=== PATIENT | female | born 1955 | race Caucasian/White ===

== ENCOUNTER 2023-02-20 08:27 | Day surgery (SDC) | payer MEDICARE ==
--- NOTE | 2023-02-20 07:45 | P.GSHP ---
History of Present Illness H&P Date: 02/20/23 Chief Complaint: Chronic cholecystitis 67-year-old female seen in the office in December. Patient with complaints of epigastric pain. She has been forced to eat a more bland diet. HIDA scan showed nonvisualization of the gallbladder and ultrasound shows gallstones. Past Medical History Past Medical History: Blood Disorder Additional Past Medical History / Comment(s): Cholecystitis, Factor V Leiden History of Any Multi-Drug Resistant Organisms: None Reported Additional Past Surgical History / Comment(s): L breast lump removed/noncancerous. Past Anesthesia/Blood Transfusion Reactions: No Reported Reaction Smoking Status: Former smoker - Past Family History Father Family Medical History: CVA/TIA, Myocardial Infarction (GA) Additional Family Medical History / Comment(s): GA at age 39yrs. Mother History Unknown: Yes Family Medical History: Diabetes Mellitus, Renal Disease Additional Family Medical History / Comment(s): Cholecystitis- after surgery to removed. Medications and Allergies Home Medications Medication Instructions Recorded Confirmed Type Ascorbic Acid [Vitamin C chew] 500 mg PO QAM 02/18/23 02/18/23 History Aspirin [Adult Low Dose Aspirin EC] 81 mg PO QAM 02/18/23 02/18/23 History Multivitamin [Multivitamins Adult 1 tab PO QAM 02/18/23 02/18/23 History Gummies] Pantoprazole [Protonix] 40 mg PO QAM 02/18/23 02/18/23 History Allergies Allergy/AdvReac Type Severity Reaction Status Date / Time amoxicillin Allergy Itching Verified 02/18/23 11:41 Penicillins Allergy Itching Verified 02/18/23 11:41 Surgical - Exam Physical exam: General: Well-developed, well-nourished HEENT: Normocephalic, sclerae nonicteric Abdomen: Nontender, nondistended Extremities: No edema Neuro: Alert and oriented Assessment and Plan (1) Chronic cholecystitis Narrative/Plan: 67-year-old female with chronic cholecystitis. We'll proceed with laparoscopic, possible open cholecystectomy at this time. Risks of bleeding, infection, bile leak, bile duct injury, retained common bile duct stone, trocar injury, conversion to an open procedure, hernia, anesthesia related complications were reviewed. The patient understands and wishes to proceed. Status: Acute Code(s): K81.1 - CHRONIC CHOLECYSTITIS SNOMED Code(s): 04203622
[~2023-02-20 08:27] MED LIST: ACETAMINOPHEN TAB 500 MG TAB PO PRN; DEXAMETHASONE SOD PHOSPHATE 4 MG/ML 1 ML VIAL IV ONE; HEPARIN SODIUM,PORCINE/PF 5,000 UNIT/0.5 ML SYRINGE SQ PRN; HYDROmorphone 0.5 MG/0.5 ML SYRINGE IVP PRN; LACTATED RINGERS 1,000 ML IV SCH; MIDAZOLAM 2 MG/2 ML VIAL IV PRN; ONDANSETRON 4 MG/2 ML VIAL IVP ONE
[2023-02-20 09:56] LABS: Basophils % (A) 0 %; Eosinophils # (A) 0.2 k/uL (0-0.7); Eosinophils % (A) 4 %; HCT 46.9 % (34.0-46.0); HGB 15.5 gm/dL (11.4-16.0); Lymphocytes % (A) 16 %; MCH 27.7 pg (25.0-35.0); Mean Platelet Volume 8.7; Monocytes # (A) 0.3 k/uL (0-1.0); Monocytes % (A) 4 %; Neutrophils # (A) 4.3 k/uL (1.3-7.7); Neutrophils % (A) 73 %; Platelet Count 260 k/uL (150-450); RBC 5.58 m/uL (3.80-5.40); RDW 14.1 % (11.5-15.5); WBC 5.9 k/uL (3.8-10.6)
[2023-02-20 10:08] VITALS: RESP 16
[2023-02-20] MEDS ORDERED: NEOSTIGMINE 1 MG/ML 10 ML VIAL ONE (10:29)
[2023-02-20] MEDS ORDERED: KETOROLAC 15 MG/ML 1 ML VIAL ONE (10:29)
[2023-02-20] MEDS ORDERED: PROPOFOL 10 MG/ML 20 ML VIAL IV ONE (10:29)
[2023-02-20] MEDS ORDERED: fentaNYL (PF) 50 MCG/ML 2 ML AMP ONE (10:29)
[2023-02-20] MEDS ORDERED: ROCURONIUM 10 MG/ML (5 ML VIAL) IV ONE (10:29)
[2023-02-20] MEDS ORDERED: SUCCINYLCHOLINE CHLORIDE 200 MG/10 ML VIAL IV ONE (10:29)
[2023-02-20] MEDS ORDERED: MIDAZOLAM 2 MG/2 ML VIAL ONE (10:29)
[2023-02-20] MEDS ORDERED: HYDROmorphone (PF) 1 MG/ML ONE (10:29)
[2023-02-20] MEDS ORDERED: LIDOCAINE 4% LTA KIT (4 ML) TOPICAL ONE (10:29)
[2023-02-20] MEDS ORDERED: GLYCOPYRROLATE 0.2 MG/ML 2 ML VIAL ONE (10:29)
[2023-02-20] MEDS ORDERED: LIDOCAINE 1% INJ 10MG/ML (20 ML MDV) ONE (10:29)
[2023-02-20] MEDS ORDERED: BUPIVACAINE (PF) 0.25% 30 ML VIAL SQ ONE ×2 (10:33)
[2023-02-20] MEDS ORDERED: LACTATED RINGERS 1,000 ML IV ONE (11:15)
[2023-02-20 12:14] VITALS: TEMP 97.6
--- NOTE | 2023-02-20 13:03 | P.OP ---
Date of Procedure: 02/20/23 Procedure(s) Performed: PREOPERATIVE DIAGNOSIS: Chronic cholecystitis POSTOPERATIVE DIAGNOSIS: Same PROCEDURE: Laparoscopic cholecystectomy SURGEON: Dylan EBL: Minimal see anesthesia record ANESTHESIA: Gen. COMPLICATIONS: None OPERATIVE PROCEDURE: The patient was brought and placed on the operating room table in the supine position. The patient was placed under general anesthesia at that time. The abdomen was prepped and draped in the usual sterile fashion. A small vertical infraumbilical incision was made. The fascia was grasped with the Alban forceps. The fascia was retracted anteriorly. The Veress needle was advanced into the peritoneal cavity. The saline drop test was normal. Insufflation took place up to 15 mmHg. A 5 mm optical trocar was advanced and the peritoneal cavity. 2 additional 5 mm trochars were placed in the right upper quadrant under direct visualization. A 12 mm trocar was advanced into the epigastric incision site. The gallbladder had a thickened wall. The gallbladder was retracted superiorly and laterally. The peritoneum overlying the infundibulum was bluntly dissected. The patient's cystic duct was visualized. The junction between the cystic duct common and hepatic duct was identified. The critical view of safety was achieved after blunt dissection. The cystic duct was then divided after placement of 3 12 mm clips on the patient's side and one on the specimen side. The cystic artery was identified and clipped as well. A small vessel was seen along the gallbladder fossa and clipped as well. The gallbladder was then removed from the liver bed using electrocautery. The posterior wall the gallbladder was even thicker. A few small vessels were seen and clipped. The gallbladder was then removed from the epigastric trocar site with an Endo Catch bag. The gallbladder fossa was irrigated with saline. There was no evidence of any bleeding or biliary drainage seen. The fascia at the 12 millimeter site was closed using a Bright- Comfort 0 Vicryl stitch. The trochars were then removed. The skin at all 4 sites was closed using a 4-0 Monocryl stitch. Skin glue was utilized on the incision sites. At the end of this procedure the sponge and needle counts were correct. DISPOSITION: Stable to the recovery room
[2023-02-20] MEDS ORDERED: ACETAMINOPHEN TAB 325 MG TAB PO SCH (13:15)
[2023-02-20 13:18] VITALS: BP 127/71; PULSE 50
[2023-02-20] MEDS ORDERED: IBUPROFEN 600 MG TAB PO SCH (16:15)
== END 2023-02-20 13:33 | disposition home or self-care (01) ==
LOC: OR 08:27
PROVIDERS: ATTEND Surgery
DX: K80.12 Calculus of gallbladder with acute and chronic cholecystitis without obstruction (principal); D68.51 Activated protein C resistance; Z87.891 Personal history of nicotine dependence; Z82.49 Family history of ischemic heart disease and other diseases of the circulatory system; Z83.3 Family history of diabetes mellitus; Z79.82 Long term (current) use of aspirin; Z79.899 Other long term (current) drug therapy; Z88.0 Allergy status to penicillin
CPT/HCPCS: 47562; 88304; 85025; J2250; J0330; J1100; J2710; J0690; J2405; J2001; J3010; J1170; J1885; J2704; J1644; J0665